=== PATIENT | female | born 1965 | race Two or more races ===

== ENCOUNTER 2017-07-18 09:30 | Day surgery (SDC) | payer OTHER ==
[2017-07-18] VITALS (8 sets, daily range): BP systolic 101–133; BP diastolic 59–77
[~2017-07-18] VITALS: Ht 165.1 cm; Wt 79.8 kg
[2017-07-18] MEDS ORDERED: NKM (10:10)
[2017-07-18] MEDS ORDERED: LR 1000ml 1,000 ML IVLG SCH (11:13)
[2017-07-18] MEDS ORDERED: Metoclopramide 10mg/2ml Inj IVP PRN (11:15)
[2017-07-18] MEDS ORDERED: HYDROcodone/Acetamin 7.5/325 tab ORAL PRN (11:15)
[2017-07-18] MEDS ORDERED: Midazolam 2mg/2ml Inj IVP PRN (11:15)
[2017-07-18] MEDS ORDERED: Norco 5mg/325mg tab ORAL PRN (11:15)
[2017-07-18] MEDS ORDERED: Labetalol 5mg/ml 20ml vial IV PRN (11:15)
[2017-07-18] MEDS ORDERED: oxyCODONE HCL/Acetaminophen 5/325mg ORAL PRN (11:15)
[2017-07-18] MEDS ORDERED: LORazepam Inj 2mg/ml 1ml IV PRN (11:15)
[2017-07-18] MEDS ORDERED: Ketorolac 30mg Inj IV PRN ×2 (11:15)
[2017-07-18] MEDS ORDERED: Atropine Inj 1mg/10ml Syr IV PRN (11:15)
[2017-07-18] MEDS ORDERED: fentaNYL 100 mcg/2 mL IV PRN (11:15)
[2017-07-18] MEDS ORDERED: DiphenhydrAMINE 50mg/ml Inj IVP PRN (11:15)
--- NOTE | 2017-07-18 11:17 | Anethesia Preoperative Eval ---
Anesthesia Pre-op PMH/ROS General Date of Evaluation: July 18, 2017 Time of Evaluation: 12:33 Anesthesiologist: Chong ASA Score: ASA 3 Mallampati Score Class I : Soft palate, uvula, fauces, pillars visible Class II: Soft palate, uvula, fauces visible Class III: Soft palate, base of uvula visible Class IV: Only hard plate visible Mallampati Classification: Class II Surgeon: Lj Diagnosis: GERD Surgical Procedure: EGD/Colonoscopy Anesthesia History: none Family History: no anesthesia problems Allergies: Coded Allergies: No Known Allergies (Unverified , 07/01/17) Medications: see eMAR Past Medical History Gastrointestinal/Genitourinary: Reports: GERD Musculoskeletal/Integumentary: Reports: other - Back Pain Other: obesity - BMI 31 PSxH Narrative: JULIUS, Cholecystectomy Anesthesia Pre-op Phys. Exam Physician Exam Last Vital Signs Date Time Temp Pulse Resp B/P (MAP) Pulse Ox O2 Delivery O2 Flow Rate FiO2 07/18/17 10:03 97.2 62 18 133/77 100 Room Air 97.2 Constitutional: NAD Neurologic: CN 2-12 intact Cardiovascular: RRR Respiratory: CTA Gastrointestinal: S/NT/ND Airway Exam Mallampati Score: Class II MO: limited ROM: limited Teeth: missing, intact Anesthesia Pre-op A/P Risk Assessment & Plan Assessment: ASA 3 Plan: GA Status Change Before Surgery: Pedro Jc MD July 18, 2017 11:17
--- NOTE | 2017-07-18 11:18 | Immediate Post-Op Evaluation ---
Immediate Post-Op Evalulation Immediate Post-Op Evalulation Procedure: EGD/ Colonoscopy Date of Evaluation: July 18, 2017 Time of Evaluation: 13:19 IV Fluids: 400 LR Blood Products: 0 Estimated Blood Loss: 1 Urinary Output: 0 Blood Pressure Systolic: 101 Blood Pressure Diastolic: 60 Pulse Rate: 70 Respiratory Rate: 16 O2 Sat by Pulse Oximetry: 100 Temperature (Fahrenheit): 97.4 Pain Score (1-10): 1 Nausea: No Vomiting: No Complications 0 Patient Status: awake, reacts, patent, none Hydration Status: adequate Pedro Schwarz MD July 18, 2017 11:18
--- NOTE | 2017-07-18 11:19 | 48 Hour Post Anesthesia Eval ---
Post Anesthesia Evaluation Procedure: EGD/ Colonoscopy Date of Evaluation: July 18, 2017 Time of Evaluation: 15:21 Blood Pressure Systolic: 118 0: 72 Pulse Rate: 64 Respiratory Rate: 18 Temperature (Fahrenheit): 97.4 O2 Sat by Pulse Oximetry: 100 Airway: patent Nausea: No Vomiting: No Pain Intensity: 1 Hydration Status: adequate Cardiopulmonary Status: 0 Mental Status/LOC: patient returned to baseline Follow-up Care/Observations: 0 Post-Anesthesia Complications: 0 Follow-up care needed: ready to discharge Pedro Schwarz MD July 18, 2017 11:19
--- NOTE | 2017-07-18 12:19 | Pre-Procedure Note/Attestation ---
Pre-Procedure Note/Attestation Complete Prior to Procedure Planned Procedure: not applicable Procedure Narrative: EGD AND COLONOSCOPY Indications for Procedure Pre-Operative Diagnosis: Screening colon,GERD Attestation I attest that I discussed the nature of the procedure; its benefits; risks and complications; and alternatives (and the risks and benefits of such alternatives ), prior to the procedure, with the patient (or the patient's legal customer response representative). I attest that, if there was a reasonable possibility of needing a blood transfusion, the patient (or the patient's legal customer response representative) was given the [facility] standardized written summary, pursuant to the [place] Blood Safety Act ([place] Health and Safety Code # 1645, as amended). I attest that I re-evaluated the patient just prior to the surgery and that there has been no change in the patient's H&P, except as documented below: Rishi Calhoun MD July 18, 2017 12:19
--- NOTE | 2017-07-18 12:20 | Short Stay Surgery H&P ---
History of Present Illness History of Present Illness Chief Complaint screening colon, chronic GERD HPI Makeda Terry is a 51 year old female who was admitted on for Chronic Gerd, Colon Screening Patient History Allergies: Coded Allergies: No Known Allergies (Unverified , 07/01/17) PAST MEDICAL HISTORY: (1) cholecystectomy Medication History Scheduled No Known Medications* (NKM - No Known Medications*), 0 ., (Reported) Review of Systems Cardiovascular: Reports: no symptoms Respiratory: Reports: no symptoms Skeletal: Reports: no symptoms Gastrointestinal: Reports: gastro esophageal reflux disease Genitourinary: Reports: no symptoms Neurologic: Reports: no symptoms Endocrine: Reports: no symptoms Hematologic: Reports: no symptoms Physical Exam Vital Signs Last Vital Signs Date Time Temp Pulse Resp B/P (MAP) Pulse Ox O2 Delivery O2 Flow Rate FiO2 07/18/17 10:03 97.2 62 18 133/77 100 Room Air 97.2 Skin: normal HENT: normal Heart: normal Lungs: normal Abdomen: normal Extremities: normal Plan Plan of Care esophagogastroduodenoscop and colonoscopy Attestation Are the patient's medical conditions optimized for surgery? Rishi Calhoun MD July 18, 2017 12:20
[2017-07-18] MEDS ORDERED: Lidocaine 1% MPF 10mg/ml 5ml ONE (12:30)
[2017-07-18] MEDS ORDERED: LR 1000ml ONE (12:30)
[2017-07-18] MEDS ORDERED: Propofol 200mg/20ml IV ONE (12:30)
[2017-07-18] MEDS ORDERED: Midazolam 2mg/2ml Inj ONE (12:30)
--- NOTE | 2017-07-18 13:03 | Endoscopy Procedure Note ---
Endoscopy Procedure Note General Indication for Procedure: screening colon, GERD Procedures Performed: EGD, colonoscopy Operative Findings/Diagnosis: gastritis, poor prep Specimen: yes Pt Tolerated Procedure Well: Yes Estimated Blood Loss: none Anesthesia Anesthesiologist: john paul Anesthesia: MAC Inserted Devices Implant(s) used?: No Quality Quality of Bowel Preparation: Poor Did scope reach the cecum?: Yes Was there any complications?: No GI Core Measures 50 yrs or older w/o bx or poly: Yes 10yrs. F/U not recommended: Yes If not recommended, why?: Above average risk 10 yrs. F/U needed: Yes 18 years or older w/prev. colo: No Rishi Calhoun MD July 18, 2017 13:03
--- NOTE | 2017-07-18 16:30 | Procedure Note ---
DATE OF PROCEDURE: 07/18/2017 SURGEON: Rishi Calhoun M.D. ANESTHESIOLOGIST: Dr. Schwarz. PROCEDURE: Upper endoscopy with biopsy and colonoscopy. ANESTHESIA: Per Dr. Schwarz. INSTRUMENT: Olympus adult flexible upper endoscope and colonoscope. INDICATIONS: Screening colonoscopy evaluation and chronic gastroesophageal reflux disease. The procedure, risks, benefits, and possible consequences, including hemorrhage, aspiration, perforation and infection, and alternative treatments, were explained to the patient/legal guardian by Dr. Rishi Calhoun and the patient/legal guardian understood and accepted these risks. DESCRIPTION OF PROCEDURE: After informed consent was obtained and the patient was adequately sedated, Olympus upper endoscope was advanced from the mouth into the second portion of the duodenum and retroflexion was performed in the stomach. The patient had diffuse gastritis. Random biopsy from antrum and body was obtained to rule out H. pylori infection. Otherwise, the rest of the upper endoscopic examination was grossly within normal limit. At this time, the upper endoscope was retrieved. The patient was turned over for colonoscopy. First, rectal exam was performed which was normal. Then, the scope was advanced from the rectum into the TI. Quality of prep was poor. Unfortunately, the patient had solid stool throughout the colon, I would say about of the colonic mucosa was not thoroughly examined given this prep. There was no obvious pathology seen. No obvious mass, bleeding, polyp, or any other pathology. Again, the quality of prep was poor. Retroflexion of the rectum showed evidence of internal hemorrhoids. SUMMARY OF FINDINGS: 1. Gastritis, status post biopsy. 2. Poor colonic prep. 3. Internal hemorrhoids. RECOMMENDATIONS: Follow up biopsy results and treat accordingly. Rishi Calhoun M.D. DR: Sandee JOB#: [id number] CC:
--- NOTE | 2017-07-20 17:16 | Cardiology Report ---
APPROVED REPORT EKG Measurement Heart [id number] [place] [id number] Sinus bradycardia Incomplete right bundle branch block Borderline ECG
== END 2017-07-18 14:20 | disposition home or self-care (01) ==
LOC: GAS 09:30
DX: Z12.11 Encounter for screening for malignant neoplasm of colon (principal); K21.9 Gastro-esophageal reflux disease without esophagitis; K64.8 Other hemorrhoids; R00.1 Bradycardia, unspecified; I45.10 Unspecified right bundle-branch block; K29.50 Unspecified chronic gastritis without bleeding; Z90.49 Acquired absence of other specified parts of digestive tract
CPT/HCPCS: 93005; 94003; 94150; J2250